=== PATIENT | male | born 1965 | race Caucasian/White ===

== ENCOUNTER 2016-09-09 14:52 | Emergency (ER) | payer MEDICAID ==
[~2016-09-09] VITALS: Ht 175.3 cm; Wt 84.8 kg
[~2016-09-09 14:52] MED LIST: PHEN100C3 PO
[2016-09-09 15:53] VITALS: BP 145/92
[2016-09-09] MEDS ORDERED: HYDROcodone/APAP 5/325 MG 1 TAB TAB PO ONE (16:45)
[2016-09-09 16:49] VITALS: BP 145/92
--- NOTE | 2016-09-09 16:55 | NUR ---
PATIENT IS A 51 YO MALE BIB SELF FOR RIGHT ELBOW AND KNEE PAIN CHRONIC IN NATURE DENIES INJURY OR TRAUMA. THERE IS NO VISIBLE SWELLING OR BRUISE. 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
== END 2016-09-09 16:57 | disposition home or self-care (01) ==
LOC: MED 14:52
DX: M25.521 Pain in right elbow (principal); M25.561 Pain in right knee
CPT/HCPCS: 99283